=== PATIENT | male | born 1995 | race Caucasian/White ===

== ENCOUNTER 2017-05-05 13:08 | Emergency (ER) | payer BC ==
[~2017-05-05] VITALS: Ht 185.4 cm; Wt 65.0 kg
[~2017-05-05 13:08] MED LIST: IBUP-232 PO; LEVA750T9 PO; ZOFR4TAB3 SL
[2017-05-05 13:11] VITALS: BP 112/61; PULSE 75; RESP 16; TEMP 98.8; O2SAT 98
[2017-05-05] MEDS ORDERED: DOXY100C PO (15:03)
--- NOTE | 2017-05-05 15:05 | PD ---
HPI Chief Complaint: Laceration/Skin Injury Time Seen by Provider: 14:30 Travel History International Travel<30 days: No Contact w/Intl Traveler<30days: No Traveled to known affect area: No History of Present Illness HPI 21-year-old male presents emergency department for evaluation of left foot laceration caused by an oyster shell prior to arrival. He [place] in [place] when he stepped on an oyster which cause a 2 and half centimeter laceration to the heel of his left foot. He reports the shell grazed the foot causing laceration. He did not step on the shell. He does not believe there is any foreign body retained. He reports pain at the site of the laceration. Bleeding is well-controlled. No other injuries PFSH Past Medical History Anxiety: No Depression: No Cardiovascular Problems: No Chest Pain: No Diminished Hearing: No Gastrointestinal Disorders: Yes GERD: Yes Genitourinary: No Hypertension: No Musculoskeletal: No Neurologic: No Psychiatric: No Respiratory: No Immunizations Current: Yes PNEUMOCCOCAL Vaccine (Year): 4 Past Surgical History Abdominal Surgery: No Appendectomy: Yes Cardiac Surgery: No Ear Surgery: No Endocrine Surgery: No Eye Surgery: No Genitourinary Surgery: No Gynecologic Surgery: No Neurologic Surgery: No Oral Surgery: No Thoracic Surgery: No Social History Alcohol Use: No Tobacco Use: No Substance Use: No Allergies-Medications (Allergen,Severity, Reaction): Coded Allergies: No Known Allergies (Verified , 05/05/17) Reported Meds & Prescriptions Reported Meds & Active Scripts Active Review of Systems Except as stated in HPI: all other systems reviewed are Neg Physical Exam Narrative GENERAL: Well-nourished, well-developed patient. SKIN: Focused skin assessment warm/dry. 2.5 centimeter laceration to the heel of the left foot. The wound was explored to the base there is no foreign body. Bleeding is well-controlled. The wound is well approximated. HEAD: Normocephalic. EYES: No scleral icterus. No injection or drainage. NECK: Supple, trachea midline. No JVD or lymphadenopathy. CARDIOVASCULAR: Regular rate and rhythm without murmurs, gallops, or rubs. RESPIRATORY: Breath sounds equal bilaterally. No accessory muscle use. GASTROINTESTINAL: Abdomen soft, non-tender, nondistended. MUSCULOSKELETAL: No cyanosis, or edema. 2.5 centimeter laceration to the heel of the left foot. The wound was explored to the base there is no foreign body. Bleeding is well-controlled. The wound is well approximated. BACK: Nontender without obvious deformity. No CVA tenderness. Data Data Last Documented VS Vital Signs Date Time Temp Pulse Resp B/P Pulse Ox O2 Delivery O2 Flow Rate FiO2 05/05/17 13:11 98.8 75 16 112/61 98 MDM Medical Decision Making Medical Screen Exam Complete: Yes Emergency Medical Condition: Yes Differential Diagnosis Laceration, abrasion, and likely retained foreign body Narrative Course 21-year-old male who has a 2.5 cm laceration to the left heel caused by oyster shell. The wound only involves the dermis. There is no injury to underlying structures. No foreign body was visualized. Patient does not believe there is a retained foreign body. The option of imaging was discussed with patient and family. They decline. I do not suspect there is any retained foreign body. The wound edges are well approximated. The wound was extensively irrigated and cleaned. The wound will not be sutured closed for increased risk of infection. Patient will be put on doxycycline. Wound care discussed. Close follow-up discussed. Patient verbalizes understanding and agrees to plan Diagnosis Primary Impression: Foot laceration Qualified Code: S91.311A - Laceration of right foot, initial encounter Referrals: Primary Care Physician Additional Instructions: Cleanse the wound daily and apply a clean dry dressing. Elevate the extremity throughout the day. Take the antibiotics as prescribed. Take [id number] Motrin [id number] milligrams every 6-8 hours as needed for pain. Return to the emergency department if he developed increasing pain, redness or drainage from the wound, or fever. Scripts Doxycycline Hyclate 100 Mg [id number] Mg PO BID #20 CAP Ref 0 Prov:Pili Marin 05/05/17 Disposition: 01 DISCHARGE HOME Condition: Stable Pili Marin May 05, 2017 15:05
[2017-05-05 15:10] VITALS: BP 108/64
== END 2017-05-05 15:21 | disposition home or self-care (01) ==
LOC: PHED 13:08 → PHEFT 15:21
DX: S91.312A Laceration without foreign body, left foot, initial encounter (principal); Z87.19 Personal history of other diseases of the digestive system; W22.8XXA Striking against or struck by other objects, initial encounter; Y93.01 Activity, walking, marching and hiking; Y92.832 Beach as the place of occurrence of the external cause
CPT/HCPCS: 99283